=== PATIENT | female | born 1980 | race African-American/Black ===

== ENCOUNTER 2020-04-11 13:21 | Emergency (ER) | payer OTHER ==
[~2020-04-11] VITALS: Ht 157.5 cm; Wt 79.4 kg
[~2020-04-11 13:21] MED LIST: APAP/CODEINE ELI5 M1 OR; FLEXERIL PO; IBUPROFEN 200200 M1 PO; IBUPROFEN 800800 M1 PO; LISINOPRIL-HCT1 EACH PO; LORATIDINE 10 M10 M1 PO; NAPROSYN500 MG PO; NORCO 5-325 TA1 EACH PO; NORFLEX100 MG PO; TRAMADOL 50 MG50 MG PO; ULTRAM 50MG TAB50 MG PO; ZOFRAN ODT4 MG PO; ZPAK PO
[2020-04-11] MEDS ORDERED: MOBIC7.5 MG PO (14:39)
[2020-04-11] MEDS ORDERED: ASPERCREME1 EACH TOP (14:39)
[2020-04-11] MEDS ORDERED: NORFLEX100 MG PO (14:39)
[2020-04-11 14:54] VITALS: BP 112/69
== END 2020-04-11 14:54 | disposition home or self-care (01) ==
LOC: ER 13:21
DX: S29.012A Strain of muscle and tendon of back wall of thorax, initial encounter (principal); I10 Essential (primary) hypertension; Z79.899 Other long term (current) drug therapy; Z88.5 Allergy status to narcotic agent; Z87.891 Personal history of nicotine dependence; X50.1XXA Overexertion from prolonged static or awkward postures, initial encounter; Y93.89 Activity, other specified; Y92.89 Other specified places as the place of occurrence of the external cause; Y99.8 Other external cause status